=== PATIENT | female | born 1985 | race Caucasian/White ===

== ENCOUNTER → 2021-04-29 13:07 | Outpatient (BNVA) | payer SELFPAY | PROVIDERS: Visit Provider Nurse Practitioner Family | DX: Z20.822 Contact with and (suspected) exposure to COVID-19 (principal) | CPT/HCPCS: 87635 ==

== ENCOUNTER → 2023-05-14 16:10 | Outpatient (BNVA) | payer MEDICAID, SELFPAY | PROVIDERS: PCP Nurse Practitioner Family; Visit Provider Nurse Practitioner | DX: N39.0 Urinary tract infection, site not specified (principal) | CPT/HCPCS: 81000 ==

== ENCOUNTER → 2023-06-23 13:28 | Outpatient (BNVA) | payer MEDICAID, SELFPAY | PROVIDERS: PCP Nurse Practitioner Family; Visit Provider Nurse Practitioner Family | DX: E78.1 Pure hyperglyceridemia (principal); Z79.899 Other long term (current) drug therapy; F41.9 Anxiety disorder, unspecified; F44.9 Dissociative and conversion disorder, unspecified | CPT/HCPCS: 80053; 80061; 85025 ==

== ENCOUNTER → 2023-09-16 09:51 | Outpatient (BNVA) | payer MEDICAID, SELFPAY | PROVIDERS: PCP Nurse Practitioner Family; Visit Provider Nurse Practitioner Family | DX: E78.1 Pure hyperglyceridemia (principal) | CPT/HCPCS: 80061; 83721 ==

== ENCOUNTER → 2023-10-15 11:43 | Outpatient (BNVA) | payer MEDICAID, SELFPAY | PROVIDERS: PCP Nurse Practitioner Family; Visit Provider Nurse Practitioner Family | DX: Z02.83 Encounter for blood-alcohol and blood-drug test (principal) | CPT/HCPCS: 80307 ==

== ENCOUNTER 2024-07-14 14:19 | Outpatient (CLI) | payer MEDICAID, SELFPAY ==
--- NOTE | 2024-07-14 14:23 | MM_ITS ---
WS: [id number] BILATERAL 3D TOMOSYNTHESIS DIGITAL DIAGNOSTIC MAMMOGRAPHY WITH CAD CLINICAL INFORMATION: FAMILY HISTORY OF BREAST CANCER HISTORY: Bilateral breast pain. History of brown recluse bite. Needle fragment LEFT breast. COMPARISON: None. TECHNIQUE: Bilateral CC, MLO, and ML views. FINDINGS: Scattered fibroglandular densities bilaterally. Needle fragment LEFT breast. No suspicious focal mass, asymmetry, calcifications, or architectural distortion. Ultrasound in the area of pain is pending. ULTRASOUND BREAST BILATERAL TECHNIQUE: Ultrasound bilateral breast focused area of concern. CLINICAL INFORMATION: FAMILY HISTORY OF BREAST CANCER FINDINGS: RIGHT BREAST: Four-quadrant ultrasound RIGHT breast. No suspicious cystic or solid lesions. No suspic ious lesions of target for biopsy. Normal underlying parenchymal tissue. LEFT BREAST: Four-quadrant ultrasound LEFT breast. No suspicious findings in the LEFT breast. MM/MM diag BI tomosynthesis [id number] IMPRESSION: DENSITY: There are scattered areas of fibroglandular density. BI-RADS: 2 - Benign. FOLLOW UP: Age 42 Recommend annual screening mammography age 40
== END 2024-07-14 14:20 | disposition home or self-care (01) ==
LOC: RAD 14:19
PROVIDERS: PCP Family Medicine; Visit Provider Family Medicine
DX: N64.4 Mastodynia (principal); R92.323 Mammographic fibroglandular density, bilateral breasts; Z80.3 Family history of malignant neoplasm of breast; Z84.81 Family history of carrier of genetic disease
CPT/HCPCS: 76642; 77062; G0279

== ENCOUNTER → 2024-07-22 09:05 | Outpatient (BNVA) | payer MEDICAID, SELFPAY | PROVIDERS: PCP Family Medicine; Referring Provider Family Medicine; Visit Provider Surgery | DX: S20.152A Superficial foreign body of breast, left breast, initial encounter (principal); X58.XXXA Exposure to other specified factors, initial encounter | CPT/HCPCS: 99204 ==

== ENCOUNTER 2024-08-02 05:44 | Day surgery (SDC) | payer MEDICAID, SELFPAY ==
[2024-08-02] VITALS (14 sets, daily range): BP systolic 114–154; BP diastolic 50–105; PULSE 66–74; RESP 16–18; TEMP 36.1–36.3; O2SAT 65–98; BMI 45.9
[2024-08-02 06:31] LABS: OR HCG Qualitative Urine Negative (Negative)
[2024-08-02] MEDS: sodium chloride 0.9% 1,000 ML 30 ML IV (06:35)
--- NOTE | 2024-08-02 07:06 | W.PM.OPSUD ---
Surgery/Procedure H&P Update DATE OF PROCEDURE: August 02, 2024 DATE H&P PERFORMED: 07/22/24 H&P UPDATE INFORMATION: I have reviewed H&P completed within last 30 days, I have examined patient prior to procedure and No changes to prior documentation PLANNED PROCEDURE: Operation Date: 08/02/24 08:05 Proposed Procedures p excision of foreign body left breast(Left) - Hossein Curry DO
--- NOTE | 2024-08-02 07:21 | ANES.PREANE2 ---
Pre-Anesthetic Assessment Height/Weight: Height 1.65 m Weight 125.191 kg Temp Pulse Resp BP Pulse Ox O2 Del Method 96.9 F L 73 18 154/105 98 Room Air 08/02/24 06:12 08/02/24 06:12 08/02/24 06:12 08/02/24 06:12 08/02/24 06:12 08/02/24 06:19 Operation Date: 08/02/24 08:05 Proposed Procedures p excision of foreign body left breast(Left) - Hossein Curry DO Familial anesthetic complications: None Was Beta Frank taken within 24 hours: N/A Was Clonidine taken within 24 hours: N/A Last intake: Intake Last Liquid Date 08/01/24 Last Liquid Time 21:00 Last Solid Date 08/01/24 Last Solid Time 17:30 Social Tobacco and No alcohol marijuana yesterday, hx meth use, denies any recent use Exam alert, oriented x 3, clear to auscultation bilaterally and regular rate & rhythm Airway Mallampati: Class III Dentition: other (missing) CV/HEM Hypertension GI Gastroesophageal Reflux Disease Metabolic Morbid Obesity Anesthetic Plan ASA status: 3 Anesthesia: General Risk of > 500 ml blood loss (7ml/kg in children): No Medications/Allergies Home Medications Medication Instructions Recorded Confirmed Last Taken Type atorvastatin 20 mg tablet (Lipitor) 20 mg PO DAILY #90 tabs 09/17/23 08/01/24 08/01/24 Rx citalopram 40 mg tablet (Celexa) 40 mg PO BIDWMEAL #60 tabs 10/05/23 08/01/24 08/02/24 Rx doxepin 50 mg capsule 100 mg PO DAILY 10/06/23 08/01/24 08/01/24 History metoprolol tartrate 25 mg tablet 50 mg (2 x 25 mg) PO BID #360 tabs 10/07/23 08/01/24 08/02/24 Rx clonazepam 0.5 mg tablet 0.5 mg PO BID PRN panic attack(s) 11/17/23 08/01/24 08/01/24 Rx #60 tabs naltrexone 50 mg tablet 50 mg PO BID 08/01/24 08/01/24 08/01/24 History omeprazole 40 mg capsule,delayed 40 mg PO DAILY 08/01/24 08/01/24 08/01/24 History release pantoprazole 40 mg tablet,delayed 40 mg PO BEDTIME 08/01/24 08/01/24 08/01/24 History release Allergies Allergy/AdvReac Type Severity Reaction Status Date / Time Sutures Allergy ALGY-Rash Verified 08/01/24 12:45 topiramate [From Topamax] AdvReac Intermediate ADR-Seizure Verified 07/22/24 09:15 tramadol AdvReac seizure Verified 07/22/24 09:15 disorder Current Medications Generic Name Dose Route Start Last Admin Trade Name Freq PRN Reason Stop Dose Admin Sodium Chloride 1,000 mls @ 30 mls/hr 08/02/24 06:15 08/02/24 06:35 Sodium Chloride 0.9% IV 08/03/24 06:14 30 mls/hr .Q24H GIANNI Administration PFSH Anesthesia Medical History Conversion disorder Surgical History History of bilateral knee replacement Family History Mother Breast cancer grandmother/mother/ cousin Unknown Primary cancer of bone marrow mothers brother Social History Smoking and tobacco/nicotine status: current every day tobacco/nicotine user cigarettes [ Other cigarette details: 1/2 pck day] Substance/Drug Use: former Female Reproductive History Date of last menstrual period: 07/15/24 Data Anesthesia Cardiac Studies: No Data to Display
[2024-08-02] MEDS: ceFAZolin 3,000 MG in sodium chloride 0.9% (plus) 100 ML 200 MG IV (07:44)
[2024-08-02] MEDS: lidocaine-epi 2% PF 1:200,000 20 mL SDV XX (08:10)
--- NOTE | 2024-08-02 09:07 | PM.OP ---
Operative Report Date of procedure: August 02, 2024 Pre-op diagnosis: Foreign body left breast Post-op diagnosis: same Procedure done: Left breast lumpectomy Intraoperative interpretation of fluoroscopy Implants: Victorina Specimens removed/disposition: Foreign body left breast Left breast lumpectomy Surgeon: Hossein Curry DO Estimated blood loss (mL): 5 Complications: None apparent Brief History: This is a very pleasant 39-year-old female with history of conversion disorder and IV drug abuse who was found to have needle retained in her left breast on imaging. She is reporting significant pain at the left breast at the area of the foreign body. She desired excision. Excision of foreign body left breast, possible lumpectomy, was indicated. The risks and benefits of the procedure, including but not limited to, bleeding, infection, scar, numbness, pain, inability to retrieve the foreign body, were explained to the patient. She is understand the risks and wishes to proceed Procedure: Patient was wheeled off room placed on the OR table in the supine position. An LMA was placed by the department anesthesia. The left breast was inspected prepped and draped in usual sterile fashion. Timeout was performed. All present were in agreement. Using C arm fluoroscopy is able to identify the approximate location of the needle foreign body. 2% lidocaine with epinephrine was used to anesthetize the skin overlying the foreign body. A lumpectomy specimen was carved out using electrocautery. I then used fluoroscopy on the specimen and the needle could not be identified. I used fluoroscopy again on the breast and found the approximate location of the needle. Additional lumpectomy specimen was obtained. Again fluoroscopy did not show the needle in the specimen. Using fluoroscopy again to identify the approximate location of the needle, I performed excision of an additional lumpectomy specimen. Fluoroscopy did identify the needle and the specimen. I used uroscopy to isolate the specimen and passed it off. The remainder of the lumpectomy specimen was passed off. This is a benign excision. Hemostasis was achieved with. Electrocautery Victorina was placed into the wound. Dermis approximated with 3-0 Vicryl in an interrupted fashion. Skin was closed with 4-0 Monocryl in a subcuticular running fashion. Dermabond was applied. Patient tolerated procedure well.
[2024-08-02] MEDS: fentaNYL 50 mcg/mL INJ 2mL IVP (09:20)
[2024-08-02] MEDS: HYDROmorphone 1 mg/mL INJ 1 mL 0.5 MG IVP ×2 (09:35→09:40)
[2024-08-02] MEDS: HYDROcodone-acetaminophen 7.5-325 mg Tablet 1 TAB PO (10:24)
--- NOTE | 2024-08-02 11:25 | ANE.PACU2 ---
Inpatient post-anesthesia follow up: Airway intact: Yes Vital signs: Temperature 97.3 F Pulse Rate 67 Respiratory Rate 18 Blood Pressure 118/73 Pulse Oximetry 65 Oxygen Delivery Me thod Room Air Oxygen Flow Rate Fraction of Inspir ed Oxygen Hydration adequate: Yes Nausea and vomiting: No Pain level: 1 Mental status: Baseline
== END 2024-08-02 11:25 | disposition home or self-care (01) ==
PROVIDERS: PCP Family Medicine; Visit Provider Surgery
PROC: (CPT 19120; principal; 2024-08-02 08:05)
DX: S21.042A Puncture wound with foreign body of left breast, initial encounter (principal); X58.XXXA Exposure to other specified factors, initial encounter; F19.21 Other psychoactive substance dependence, in remission; I10 Essential (primary) hypertension; K21.9 Gastro-esophageal reflux disease without esophagitis; E66.01 Morbid (severe) obesity due to excess calories; Z68.42 Body mass index [BMI] 45.0-49.9, adult; F17.210 Nicotine dependence, cigarettes, uncomplicated
CPT/HCPCS: 10121; 76000; 81025; 88300; 88307; J0690; J1100; J1171; J2250; J2405; J2704; J3010; J7030

== ENCOUNTER → 2024-08-15 09:58 | Outpatient (BNVA) | payer MEDICAID, SELFPAY | PROVIDERS: PCP Family Medicine; Visit Provider Surgery | DX: Z98.890 Other specified postprocedural states (principal); S40.851A Superficial foreign body of right upper arm, initial encounter; X58.XXXA Exposure to other specified factors, initial encounter | CPT/HCPCS: 99214 ==